=== PATIENT | female | born 1975 | race Caucasian/White ===

== ENCOUNTER 2022-07-14 13:33 | Outpatient (CLI) | payer BC, SELFPAY ==
--- NOTE | 2022-07-14 | DI.US_ITS ---
Exam(s) US LOWER EXTREMITY VENOUS RT EXAM: US LOWER EXTREMITY VENOUS RT CLINICAL HISTORY: RT CALF PAIN, M79.661, ? BLOT CLOT TECHNIQUE: Grayscale, color, and doppler imaging of the deep venous system of the right lower extrem ity was performed. COMPARISON: No exams were available for comparison FINDINGS: There is no evidence of intraluminal thrombus and there is normal compression and augmentation demons trated within the common femoral vein, femoral vein, and popliteal vein. In the ipsilateral calf the interrogated veins also exhibit normal compression/ augmentation properti es. The ipsilateral saphenofemoral junction is patent. IMPRESSION: 1. No evidence of DVT in the right lower extremity. DATA REPOSITORY:
--- NOTE | 2022-07-14 | DI.RAD_ITS ---
Exam(s) XR FOOT RT COMPLETE EXAM: XR FOOT RT COMPLETE CLINICAL HISTORY: RT CALF PAIN, RT HEEL PAIN, m79.661, M79.671. TECHNIQUE: 2D digital imaging was performed. COMPARISON: No exams were available for comparison FINDINGS: 3 views No evidence of acute fracture or diastasis of the Lisfranc joint. Bone density normal. No osseous l esions. No pes planus. Small inferior calcaneal spur noted. IMPRESSION: No significant acute osseous findings. DATA REPOSITORY: RADIATION DOSE DELIVERED:
== END 2022-07-14 13:53 ==
PROVIDERS: PCP Internal Medicine; Visit Provider Physician Assistant Medical
DX: M79.661 Pain in right lower leg (principal); M79.671 Pain in right foot
CPT/HCPCS: 73630; 93971

== ENCOUNTER 2022-07-26 09:58 | Outpatient (REF) | payer BC, SELFPAY | END 2022-07-26 09:59 | disposition home or self-care (01) | LOC: NCHCN 09:58 | PROVIDERS: PCP Internal Medicine; Visit Provider Nurse Practitioner Family | DX: R30.0 Dysuria (principal) | CPT/HCPCS: 87077; 87086; 87186 ==

== ENCOUNTER 2022-09-16 15:36 | Outpatient (REF) | payer BC, SELFPAY ==
--- NOTE | 2022-09-16 14:20 | PAPFT_PTH ---
PATIENT: Rachna Downing [facility] U#:[id number] AGE/SX: 47/F ROOM: RE09/16/[address]: Franca Vega : 1975 BED: DIS: 09/16/2022 SPEC #: [id number] RECD: 09/19/22 13:08 STATUS: CURLY AMAYA #: [id number] BETTYE: 09/16/22 14:[address]: Franca Vega DEPT: [facility] Cytology RECD BY: Fany Miller ENTERED: 09/19/22 13:08 SP TYPE: PAPFT OTHR DR: Muriel Ashton Tissues: 1 - CX/ENDOCX FOR PAP SMEARS Procedures: PAP THIN PREP/UVM Screening HPV DNA PROBE Comments: [id number]
[2022-09-16 21:00] LABS: HCT 39.2 % (36.0-46.0); MCH 27.8 pg (27.0-33.0); MCHC 33.2 % (32.0-36.0); MCV 84 fL (80-95); MPV 10.6 fL (8.0-11.0); Platelet Count 329 10^3/uL (130-400); RBC 4.67 10^6/uL (3.93-5.22); RDW 13.1 % (11.7-14.6); RDW-SD 39.9 fL; WBC 8.31 10^3/uL (4.4-10.8)
[2022-09-16 21:23] LABS: Hemoglobin A1C 5.9 % (<5.7)
[2022-09-16 21:24] LABS: ALT 23 U/L (14-59); AST 16 U/L (15-37); Alkaline Phosphatase 87 U/L (46-116); Anion Gap 10.6 mmol/L (3-11); BUN 11 mg/dL (7-18); Bilirubin, Total 0.3 mg/dL (0.2-1.0); C-Reactive Protein 0.68 mg/dL (0.0-0.3); CO2 26.4 mmol/L (21.0-32.0); CREATININE 0.6 mg/dL (0.55-1.02); Calcium 9.1 mg/dL (8.5-10.1); Chloride 103 mmol/L (98-107); Estimated GFR 110.65 (mL/min/1.73m2); Glucose 88 mg/dL (74-106); Potassium 4.1 mmol/L (3.5-5.1); Sodium 140 mmol/L (136-145); Total Protein 7.2 g/dL (6.4-8.2)
[2022-09-16 21:37] LABS: Vitamin D 25 Total 19.4 ng/mL (30-100)
[2022-09-16 21:38] LABS: Calculated LDL 126 mg/dL (<100); Cholesterol 208 mg/dL (<200); HDL Cholesterol 70 mg/dL (40-60); Triglyceride 64 mg/dL (<150)
[2022-09-17 22:10] LABS: Rheumatoid Factor <8.6 IU/mL (<12.0)
[2022-09-19 09:47] LABS: Cyclic Citrullinated Peptide <2.5 U/mL (<5.0)
== END 2022-09-16 15:37 | disposition home or self-care (01) ==
LOC: NCHCN 15:36
PROVIDERS: PCP Internal Medicine; Visit Provider Family Medicine
DX: Z00.00 Encounter for general adult medical examination without abnormal findings (principal); Z01.419 Encounter for gynecological examination (general) (routine) without abnormal findings; R19.00 Intra-abdominal and pelvic swelling, mass and lump, unspecified site; M79.10 Myalgia, unspecified site; Z68.30 Body mass index [BMI] 30.0-30.9, adult
CPT/HCPCS: 80053; 80061; 82306; 85027; 86200; 88142; 83036; 84443; 86140; 86431; 87624

== ENCOUNTER 2023-07-27 14:57 | Outpatient (REF) | payer BC, SELFPAY ==
--- NOTE | 2023-07-27 13:10 | ENDOMET_PTH ---
PATIENT: Rachna Downing LOC: [facility] U#:[id number] AGE/SX: 47/F ROOM: RE07/27/[address]: Ramya Almazan DO : 1975 BED: DIS: 07/27/2023 SPEC #: [id number] RECD: 07/27/23 15:53 STATUS: CURLY REQ #: [id number] BETTYE: 07/27/23 13:[address]: Ramya Almazan DEPT: Surgical Specimen RECD BY: Fany Miller ENTERED: 07/27/23 15:53 SP TYPE: Endomet OTHR DR: Muriel Ashton Tissues: 1 - ENDOMETRIUM BX/DAKOTA Procedures: GROSS AND MICRO LEVEL 4 Comments: [id number]
== END 2023-07-27 14:58 | disposition home or self-care (01) ==
LOC: LBN 14:57
PROVIDERS: PCP Internal Medicine; Visit Provider Obstetrics & Gynecology
DX: D25.9 Leiomyoma of uterus, unspecified (principal)
CPT/HCPCS: 88305

== ENCOUNTER 2023-08-29 05:15 | Outpatient (CLI) | payer BC, SELFPAY ==
[2023-08-29 11:44] LABS: Abs Immature Grans 0.02 10^3/uL (0.0-0.06); Absolute Basophil Count 0.06 10^3/uL (0.0-0.2); Absolute Eosinophil Count 0.16 10^3/uL (0.0-0.7); Absolute Lymphocyte Count 2.66 10^3/uL (1.2-3.4); Absolute Neutrophil Count 3.64 10^3/uL (1.2-6.7); Basophils % 0.9; Eosinophils % 2.3; HGB 12.5 g/dL (11.2-15.7); Immature Grans % 0.3; Lymphocytes % 37.8; MCH 27.5 pg (27.0-33.0); MCHC 32.9 % (32.0-36.0); MCV 84 fL (80-95); Monocytes % 7.1; Neutrophils % 51.6; Platelet Count 322 10^3/uL (130-400); RBC 4.54 10^6/uL (3.93-5.22); RDW 13.1 % (11.7-14.6); RDW-SD 40.2 fL; WBC 7.04 10^3/uL (4.4-10.8)
== END 2023-08-29 05:16 | disposition home or self-care (01) ==
LOC: LBO 05:16
PROVIDERS: PCP Internal Medicine; Visit Provider Obstetrics & Gynecology
DX: Z01.818 Encounter for other preprocedural examination (principal)
CPT/HCPCS: 36415; 86850; 86900; 86901; 85025

== ENCOUNTER 2023-08-31 11:25 | Day surgery (SDC) | payer BC, SELFPAY ==
[2023-08-31] VITALS (8 sets, daily range): BP systolic 71–115; BP diastolic 36–63; PULSE 61–90; RESP 16–20; TEMP 36.1–36.6; O2SAT 94–100; BMI 31.0
[2023-08-31] MEDS: Lactated Ringers 1,000 ML 125 ML IV (12:45)
--- NOTE | 2023-08-31 12:49 | W.ANESPRE ---
General Info Date of Service Date Performed: 08/31/23 Height: 5 ft Weight: 72.1 kg Body Mass Index (BMI): 31.0 Surgical Procedure: Operation Date: 08/31/23 13:10 Proposed Procedure Side Surgeon p Dilation & Curettage with Hysteroscopy Ramya Almazan DO Meds Allergies and Home Medications Allergies Allergy/AdvReac Type Severity Reaction Status Date / Time No Known Allergies Allergy Verified 08/31/23 12:25 Home Medication Medication Instructions Recorded Unknown [No Known Home Meds] 01/23/23 Current Visit Medications: Current Medications Generic Name Dose Route Start Last Admin Trade Name Freq PRN Reason Stop Dose Admin Ringer's Solution 1,000 mls @ 125 mls/hr 08/31/23 06:00 IV 08/31/23 23:59 INFUSION MINOO IV Miscellaneous Supplies 1 each 08/31/23 06:00 Iv Access IV 08/31/23 23:59 DIRECTED MINOO Sodium Chloride 0 ml 08/31/23 06:00 Normal Saline Flush 10 Ml Syr IV 08/31/23 23:59 PRN PRN Sodium Chloride 0 ml 08/31/23 06:00 Normal Saline 10 Ml Vial IJ 08/31/23 23:59 DIRECTED PRN Sterile Water 0 ml 08/31/23 06:00 Water,Injection,Sterile 10 Ml Vial IJ 08/31/23 23:59 DIRECTED PRN PFSH Active Problems Active Problems: Problem Status Onset Code Left ovarian cyst N83.202 Uterine fibroid D25.9 Surgical History Surgical History History of left oophorectomy Tobacco Smoking/Tobacco Use Status: Never Alcohol Alcohol Intake: never Substance Use Substance use: Never Substance use type: does not use Prental History History 1 Para 0 Hx # Term Pregnancies Multiple births Hx # Pregnancies Ectopic pregnancies 1 AB induced Hx Number of Living Children 0 AB spontaneous Vital Signs and Lab Results Vital Signs Most Recent Vital Signs in EMR: Most Recent Vital Signs Temp Pulse Resp BP Pulse Ox 36.5 C 63 16 100/63 99 08/31/23 12:29 08/31/23 12:29 08/31/23 12:29 08/31/23 12:29 08/31/23 12:29 Lab Results Blood Type / Crossmatch: Patient ABO/Rh O Positive 08/29/23 Antibody Screen NEGATIVE 08/29/23 Complete Blood Count: White Blood Count 7.04 10^3/uL (4.4-10.8) 08/29/23 11:34 Red Blood Count 4.54 10^6/uL (3.93-5.22) 08/29/23 11:34 Hemoglobin 12.5 g/dL (11.2-15.7) 08/29/23 11:34 Hematocrit 38.0 % (36.0-46.0) 08/29/23 11:34 Platelet Count 322 10^3/uL (130-400) 08/29/23 11:34 Complete Metabolic Panel: No Data to Display Liver Function Panel: No Data to Display Coagulation Panel: No Data to Display Cardiac Panel: No Data to Display Arterial Blood Gas: No Data to Display Venous Blood Gas: No Data to Display Pancreas Panel: No Data to Display Thyroid Panel: No Data to Display Infectious Disease: No Data to Display Blood Cultures: No Data to Display Toxicology Panel: No Data to Display Panel: No Data to Display Anesthesia Assessment and Plan Anesthesia History Personal History: No History of Anesthesia Complications Family History: No Family History of Anesthesia Complications Exercise Tolerance Exercise Tolerance: Metabolic Equivalents>4 Cardiac & Pulmonary Exam Cardiac Exam: Normal S1/S2 Heart Sounds Pulmonary Exam: Clear Bilateral Breath Sounds Implantable Cardiac Device Does patient have a Pacemaker or an ICD?: No Airway Exam Known Difficult Airway: No Mallampati Class: 3 Mouth Opening: Normal (> 3cm) Thyromental Distance: Greater than 3 cm Neck Range of Motion: Full ROM Neck Circumference: Normal Teeth Condition: Normal Dentition ASA Classification ASA Score: ASA 1 Emergency Case?: No NPO Status NPO Status: NPO Clears >2 hours, Solids >8 hours Status Status: Not Relevant due to Medical History Anesthesia Plan Resuscitation Status: Full Code Anesthesia Technique: General Anesthesia Airway Planned: LMA Monitors Used: Standard Monitors Preoperative Comments:: 48 yo female for D/C hysteroscopy. Sig PMHx: denies. no home meds.
--- NOTE | 2023-08-31 13:50 | ENDO_PTH ---
PATIENT: Rachna Downing LOC: [facility] U#:[id number] AGE/SX: 48/F ROOM: RE08/31/[address]: Ramya Almazan DO : 1975 BED: DIS: 08/31/2023 SPEC #: [id number] RECD: 08/31/23 17:31 STATUS: CURLY RE #: [id number] BETTYE: 08/31/23 13:[address]: Ramya Almazan DEPT: Surgical Specimen RECD BY: Fany Miller ENTERED: 08/31/23 17:32 SP TYPE: Endo OTHR DR: Muriel Ashton Tissues: 1 - ENDOCERVICAL BX/CURRETTE 2 - ENDOMETRIUM BX/CURRETTE Procedures: GROSS AND MICRO LEVEL 4 Comments: [id number]
--- NOTE | 2023-08-31 14:03 | ROE_ITS ---
Date of service: 08/31/23 Time of Service: 14:03 Operative Note Operative Note DATE OF PROCEDURE: 08/31/23 PRE-OP DIAGNOSIS: Uterine fibroids, thickened endometrium, failed endometrial biopsy POST-OP DIAGNOSIS: same PROCEDURE: Hysteroscopy with dilation and curettage SURGEON: Ramya Almazan ANESTHESIA TYPE: General LMA/ETT Refer to Anesthesia Record ESTIMATED BLOOD LOSS: 10 PATHOLOGY: other (1. Endocervical curettage 2. Endometrial curettage) COMPLICATIONS: None Patient was transported to: PACU Indications: Preoperative evaluation, thickened endometrium, uterine fibroids Findings: Bulky approximately 14 weeks size globular uterus with intramural fibroids appreciated. Otherwise smooth, regular endometrial lining. Procedure Description: After full informed consent was obtained, patient was taken the operating suite with an IV running where she is placed in the supine position. Anesthesia administered and the patient was placed in the modified dorsolithotomy position and prepped and draped in the usual sterile fashion. Timeout was held and bladder drained for approximately 50 cc of clear yellow urine. Exam under anesthesia reveals a markedly enlarged, bulky, globular fibroid uterus. At this point a speculum was inserted into the vaginal vault and a single-tooth tenaculum used to grasp the anterior lip of the cervix. Cervical os dilated to the point that a 3 mm hysteroscope could be passed without difficulty. With instillation of normal saline the entire endometrium was inspected and noted to be markedly irregular due to her intramural fibroids. Both tubal ostia were visualized. At this point hysteroscope portion was terminated with a total f luid deficit of 65 cc of normal saline. Fractional curettage was performed first of the endocervix, followed by the endometrium. Tenaculum was then removed. One of the tenaculum puncture sites was not hemostatic which was cauterized with silver nitrate. This was then noted to be hemostatic. Speculum was removed and the patient was returned to the dorsal supine position. She woke from anesthesia without difficulty. Complications: None apparent Fluids: crystalloid per anesthesia Pathology: 1. Endocervical curettage 2. Endometrial curettage EBL: 10 mL
[2023-08-31] MEDS: Silver Nitrate Stick 1 EACH (14:12)
--- NOTE | 2023-08-31 14:57 | W.ANESPOSTOP ---
Postoperative Evaluation Date, Time and Location Date Performed: 08/31/23 Time Performed: 14:57 Patient Location: Day Surgery Unit Vital Signs Most Recent Imported Vital Signs: Most Recent Vital Signs Temp Pulse Resp BP Pulse Ox 36.1 C L 84 16 105/55 L 100 08/31/23 14:45 08/31/23 14:45 08/31/23 14:45 08/31/23 14:45 08/31/23 14:45 Pain Score Most Recent Pain Score: Most Recent Pain Score Pain Level 0 08/31/23 14:45 Assessment Mental Status: Awake (Alert & Oriented to Patient Baseline) Airway and Respiratory Function: Patent airway with normal (patient baseline) respiratory exam Cardiovascular Function: Hemodynamically Stable Hydration Status: Adequately Hydrated Nausea & Vomiting: No Nausea or Vomiting Pain: Pain is tolerable per patient Peripheral Nerve Block: Patient did not receive a nerve block
== END 2023-08-31 15:26 | disposition home or self-care (01) ==
PROVIDERS: PCP Internal Medicine; Visit Provider Obstetrics & Gynecology
PROC: 0UDB8ZZ Extraction of Endometrium, Via Natural or Artificial Opening Endoscopic (ICD-10-PCS; CPT 58558; principal; 2023-08-31 13:00)
DX: D25.1 Intramural leiomyoma of uterus (principal); R93.89 Abnormal findings on diagnostic imaging of other specified body structures
CPT/HCPCS: 58558; 81025; 88305; J0131; J1100; J2250; J2371; J2405; J2704

== ENCOUNTER 2023-10-16 03:58 | Outpatient (CLI) | payer BC, SELFPAY ==
[2023-10-16 09:34] LABS: Abs Immature Grans 0.01 10^3/uL (0.0-0.06); Absolute Basophil Count 0.04 10^3/uL (0.0-0.2); Absolute Eosinophil Count 0.13 10^3/uL (0.0-0.7); Absolute Lymphocyte Count 2.24 10^3/uL (1.2-3.4); Absolute Monocyte Count 0.47 10^3/uL (0.1-0.8); Absolute Neutrophil Count 3.36 10^3/uL (1.2-6.7); Basophils % 0.6; Eosinophils % 2.1; HCT 38.4 % (36.0-46.0); HGB 12.9 g/dL (11.2-15.7); Immature Grans % 0.2; Lymphocytes % 35.8; MCH 28.2 pg (27.0-33.0); MCHC 33.6 % (32.0-36.0); MCV 84 fL (80-95); MPV 9.8 fL (8.0-11.0); Monocytes % 7.5; Neutrophils % 53.8; Platelet Count 341 10^3/uL (130-400); RBC 4.57 10^6/uL (3.93-5.22); RDW 13.1 % (11.7-14.6); RDW-SD 40.3 fL; WBC 6.25 10^3/uL (4.4-10.8)
== END 2023-10-16 03:59 | disposition home or self-care (01) ==
LOC: LBO 03:58
PROVIDERS: PCP Internal Medicine; Visit Provider Obstetrics & Gynecology
DX: Z01.818 Encounter for other preprocedural examination (principal)
CPT/HCPCS: 36415; 86850; 86900; 86901; 85025

== ENCOUNTER 2023-10-18 05:56 | Inpatient (IN) | payer BC, SELFPAY ==
[2023-10-18] VITALS (16 sets, daily range): BP systolic 82–119; BP diastolic 37–69; PULSE 63–100; RESP 16–28; TEMP 36.2–37.6; O2SAT 94–100; BMI 30.8
--- NOTE | 2023-10-18 06:35 | W.ANESPRE ---
General Info Date of Service Date Performed: 10/18/23 Height: 5 ft Weight: 71.668 kg Body Mass Index (BMI): 30.8 Surgical Procedure: Operation Date: 10/18/23 07:40 Proposed Procedure Side Surgeon p Total Hysterectomy Abdominal Ramya Almazan DO Meds Allergies and Home Medications Allergies Allergy/AdvReac Type Severity Reaction Status Date / Time No Known Allergies Allergy Verified 10/18/23 06:32 Home Medication Medication Instructions Recorded ibuprofen 800 mg tablet 800 mg PO Q8H #30 tabs 08/31/23 Current Visit Medications: Current Medications Generic Name Dose Route Start Last Admin Trade Name Freq PRN Reason Stop Dose Admin Ringer's Solution 1,000 mls @ 125 mls/hr 10/18/23 06:00 IV 11/16/23 23:59 INFUSION MINOO Cefazolin Sodium/Dextrose 2 gm in 50 mls @ 100 mls/hr 10/18/23 06:00 Ancef Duplex IVPB 11/16/23 23:59 PREOP MINOO IV Miscellaneous Supplies 1 each 10/18/23 06:00 Iv Access IV 11/16/23 23:59 DIRECTED MINOO Sodium Chloride 0 ml 10/18/23 06:00 Normal Saline Flush 10 Ml Syr IV 11/16/23 23:59 PRN PRN Sodium Chloride 0 ml 10/18/23 06:00 Normal Saline 10 Ml Vial IJ 11/16/23 23:59 DIRECTED PRN Sterile Water 0 ml 10/18/23 06:00 Water,Injection,Sterile 10 Ml Vial IJ 11/16/23 23:59 DIRECTED PRN PFSH Active Problems Active Problems: Problem Status Onset Code Status post dilation and curettage Z98.890 Left ovarian cyst N83.202 Uterine fibroid D25.9 Surgical History Surgical History History of left oophorectomy Tobacco Smoking/Tobacco Use Status: Never Alcohol Alcohol Intake: never Substance Use Substance use: Never Substance use type: does not use Prental History History 1 Para 0 Hx # Term Pregnancies Multiple births Hx # Pregnancies Ectopic pregnancies 1 AB induced Hx Number of Living Children 0 AB spontaneous Vital Signs and Lab Results Vital Signs Most Recent Vital Signs in EMR: Temp Pulse Resp BP Pulse Ox 36.6 C 63 16 119/59 L 100 10/18/23 06:25 10/18/23 06:25 10/18/23 06:25 10/18/23 06:25 10/18/23 06:25 Lab Results Blood Type / Crossmatch: Patient ABO/Rh O Positive 10/16/23 Antibody Screen NEGATIVE 10/16/23 Complete Blood Count: White Blood Count 6.25 10^3/uL (4.4-10.8) 10/16/23 09:26 Red Blood Count 4.57 10^6/uL (3.93-5.22) 10/16/23 09:26 Hemoglobin 12.9 g/dL (11.2-15.7) 10/16/23 09:26 Hematocrit 38.4 % (36.0-46.0) 10/16/23 09: Platelet Count 341 10^3/uL (130-400) 10/16/23 09:26 Complete Metabolic Panel: No Data to Display Liver Function Panel: No Data to Display Coagulation Panel: No Data to Display Cardiac Panel: No Data to Display Arterial Blood Gas: No Data to Display Venous Blood Gas: No Data to Display Pancreas Panel: No Data to Display Thyroid Panel: No Data to Display Infectious Disease: No Data to Display Blood Cultures: No Data to Display Toxicology Panel: No Data to Display Panel: No Data to Display Anesthesia Assessment and Plan Anesthesia History Personal History: No History of Anesthesia Complications Family History: No Family History of Anesthesia Complications Exercise Tolerance Exercise Tolerance: Metabolic Equivalents>4 Pertinent Negatives Pertinent Negatives: No Symptoms of GERD, No Major Cardiovascular Symptoms or Complaints, No Major Pulmonary Symptoms or Complaints and No History of CVA/TIA Cardiac & Pulmonary Exam Cardiac Exam: Normal S1/S2 Heart Sounds Pulmonary Exam: Clear Bilateral Breath Sounds Implantable Cardiac Device Does patient have a Pacemaker or an ICD?: No Airway Exam Known Difficult Airway: No Mallampati Class: 3 Mouth Opening: Normal (> 3cm) Thyromental Distance: Less than 3 cm Neck Range of Motion: Full ROM Neck Circumference: Normal Teeth Condition: Normal Dentition ASA Classification ASA Score: ASA 1 Emergency Case?: No NPO Status NPO Status: NPO Clears >2 hours, Solids >8 hours Status Status: Negative HCG Anesthesia Plan Resuscitation Status: Full Code Anesthesia Technique: General Anesthesia Airway Planned: Endotracheal Tube Pain Management: Surgeon and patient request nerve block Monitors Used: Standard Monitors
[2023-10-18] MEDS: Lactated Ringers 1,000 ML 125 ML IV ×2 (07:16→11:57)
[2023-10-18] MEDS: ceFAZolin 2 GM/50 ML BAG IVPB (07:55)
--- NOTE | 2023-10-18 08:51 | W.ANESNERVE ---
Nerve Block Single Injection Procedure Date and Time Date Performed: 10/18/23 Procedure Start: 08:15 Location Where Procedure Performed Procedure Location: Operating Room Procedure Stop: 08:25 Reason Performed: Postoperative Analgesia Requesting Provider: Ramya Almazan Timeout Performed Timeout Performed: Yes Monitoring Used ECG, Blood Pressure, SpO2, ETCO2 and See EMR for corresponding vital signs Sterility Sterility: Hand Hygiene, Surgical Cap, Surgical Mask, Sterile Gloves and Chlorhexidine Sedation Given During Procedure Sedation Given (Indicate Dose Given): No Sedation given Patient Mental Status Patient Mental Status: Sedated or Ventilated without meaningful communication Nerve Block 1st Nerve Block: Laterality: Left Block Type: TAP Unilateral Ultrasound Image Saved?: Yes Needle / Catheter Used: 100mm SonoPlex II Local Anesthetic Bolus (Indicate Dose Given): Injected in 3-5ml increments after negative blood aspiration, Bupivacaine 0.5% Dose:: 10mL and Exparel Dose:: 10mL Additives (Indicate Dose Given): Epinephrine to make 1:200,000 (5mcg/ml) Dose:: 100mcg Ultrasound: Sterile probe cover and gel used Nerve Stimulator: Not Used Paresthesia: None Procedure Tolerated: No Complications and Patient tolerated well Procedure Outcome: Successful Performed By: Bridget Pandya Supervised By: Brennan Arango 2nd Nerve Block: Laterality: Right Block Type: TAP Unilateral Ultrasound Image Saved?: Yes Needle / Catheter Used: 100mm SonoPlex II Local Anesthetic Bolus (Indicate Dose Given): Injected in 3-5ml increments after negative blood aspiration, Bupivacaine 0.5% Dose:: 10mL and Exparel Dose:: 10mL Additives (Indicate Dose Given): Epinephrine to make 1:200,000 (5mcg/ml) Dose:: 100mcg Ultrasound: Sterile probe cover and gel used Nerve Stimulator: Not Used Paresthesia: None Procedure Tolerated: No Complications and Patient tolerated well Procedure Outcome: Successful Performed By: Bridget Pandya Supervised By: Brennan Arango
[2023-10-18] MEDS: Bupivacaine 0.25% Pres-Free 30 ML VIAL (10:04)
--- NOTE | 2023-10-18 11:24 | UTER_PTH ---
PATIENT: Rachna Downing LOC: U#:[id number] AGE/SX: 48/F ROOM: 230 RE10/18/[address]: Ramya Almazan DO : 1975 BED: A DIS: 10/20/2023 SPEC #: [id number] RECD: 10/18/23 12:54 STATUS: SOUAlbert REQ #: [id number] BETTYE: 10/18/23 11:[address]: Ramya Almazan DEPT: Surgical Specimen RECD BY: Fany Miller ENTERED: 10/18/23 12:55 SP TYPE: UTER OTHR DR: Muriel Ashton Tissues: 1 - UTERUS W OR W/O OVARIES(NOT TUMOR/PROLAPSE) Procedures: GROSS AND MICRO LEVEL 5 Comments: [id number]
--- NOTE | 2023-10-18 12:13 | W.PM.OP ---
Date of service: 10/18/23 Time of Service: 12:13 Operative Note Operative Note DATE OF PROCEDURE: 10/18/23 PRE-OP DIAGNOSIS: Abnormal uterine bleeding, uterine fibroids POST-OP DIAGNOSIS: same Significant adhesions of the colon to the anterior abdominal wall, uterus, pelvic sidewalls bilaterally. PROCEDURE: Total abdominal hysterectomy with right salpingectomy. Extensive lysis of adhesions. Cystoscopy SURGEON: Ramya Almazan ASSISTING SURGEON: Nadia Ramírez DIGITAL CARTOGRAPHER: Luke Chen ANESTHESIA TYPE: Local By Surgeon and General LMA/ETT Refer to Anesthesia Record ESTIMATED BLOOD LOSS: 200 PATHOLOGY: other (Uterus, cervix, right fallopian tube) COMPLICATIONS: None Patient was transported to: PACU Patient's condition: stable Indications: Enlarged, symptomatic fibroid uterus. Abnormal uterine bleeding Findings: Adhesions of the colon to the anterior abdominal wall, uterus, posterior cul-de-sac, bilateral pelvic sidewalls. Bulky enlarged uterus approximately 16 weeks size with multiple uterine fibroids 1 being approximately 4 cm pedunculated to the right. Surgical absence of the left fallopian tube and left ovary. Clubbed right fallopian tube. Normal-appearing right ovary. Cystoscopy performed for confirmation of intact bladder, with no trauma, suture, and patent ureters bilaterally. Procedure Description: After full informed consent was obtained, patient was then taken the operating suite with an IV running. She was placed in the supine position and endotracheal intubation performed by for the administration of general anesthesia with ease. Tap blocks were then performed by anesthesia. At this point, she was placed in the lithotomy position and prepped and draped in the usual sterile fashion. Chisholm catheter was inserted for continuous bladder drainage and then the patient was returned to the supine position. Previous exam under anesthesia had revealed a significantly enlarged uterus approximately to the umbilicus which was globular in nature. Pneumatic compression stockings were placed for DVT prophylaxis. Patient had initial 2 g of Ancef for surgical site infection prophylaxis was then repeated at the 4-hour surgical aster for continued surgical site infection prophylaxis. A timeout was performed. At this point attention was turned to the abdomen where the previous Pfannenstiel skin incision was infiltrated with quarter percent Marcaine. Skin incision was made through the previous Pfannenstiel incision and carried down to the underlying fascia. The fascia was then nicked in the midline and the fascial incision extended laterally. The rectus muscles were identified in the midline and the rectus muscles were then in the midline. Peritoneum was identified tented up and entered sharply. There were noted to be dense adhesions of the colon to the anterior abdominal wall precluding entry into the abdomen and pelvis. In light of this, general surgery, Dr. Luke Chen, was called for assistance. His portion of the procedure was involved in entry into the abdomen and meticulous dissection of the colon away from the anterior abdominal wall. Please see his portion of the surgical procedure for description. Once the abdomen pelvis were entered, bowel was packed away with moist laparotomy sponges and O'Milan-O'Li self-retaining retractor was placed within. The uterus was able to be elevated through the incision and attention first turned to the left round ligament which was clamped transected and ligated. This allowed visualization into the left broad ligament. There were noted to be adhesions of the adnexa to the left pelvic sidewall which were meticulously dissected away. Careful attention was turned to the uterine vessels on the left which were systematically transected and ligated. The anterior leaf of the broad ligament was elevated allowing creation of the bladder flap by elevating the vesicouterine peritoneum. At this point, the anatomy on the right was inspected. The large pedunculated fibroid was used to achieve traction and visualization of theright adnexa. The right round ligament was elevated suture-ligated and transected. This allowed visualization into the right broad ligament. The right utero-ovarian ligaments were identified and ligated with the LigaSure in a systematic fashion. With the ovary and fallopian tube on the right-hand side identified the right fallopian tube was transected from its pedicle. At this point, with the uterus elevated, the right and left uterine artery and vein were clamped, transected, and suture-ligated. Attention was then turned again to adhesions of the bowel to the posterior lower uterine segment and cervix which were dissected away for better visualization by Dr. Chen. With both uterine pedicles clamped transected and ligated and the bladder pushed well below the cervical vaginal interface, right angled Zeppelin clamps were used to clamp across the cervical vaginal interface. The cervix and uterus were then transected away from the vagina with Tere scissors. The uterus and cervix were removed from the abdomen. The vaginal cuff was then closed with 0 Vicryl suture. The corner apices were incorporated into the vaginal vault closure. 0 Vicryl suture in a running locked fashion was used to close the vaginal vault. At this point, again all pedicles were inspected and noted to be hemostatic. Dr. Chen reinspected the abdomen, colon, and bowel to assure that there was no visualized damage. After copious amounts of irrigation was performed, sponges and retractors retaining retractor was removed from the abdomen. The fascial incision was closed using 0 Vicryl suture in a running fashion. Subcu tissue was irrigated with copious amounts of normal saline and reapproximated with 3-0 Vicryl suture in a simple interrupted fashion. The skin edge was then reapproximated with 4-0 undyed Monocryl and Steri-Strips and a sterile dressing were placed. Upon completion of the hysterectomy and extensive lysis of adhesions, cystoscopy was performed. Patient received indigocarmine intravascularly to assist in visualization of the ureteric jets bilaterally. The patient was then placed in a frog-leg position and prepped. 30 degree cystoscope was used to visualize both ureters jetting blue-tinged urine, and the remainder of the bladder was visualized and found to be atraumatic with no evidence of intra vesicle suture or trauma. Cystoscopy was then terminated and Chisholm catheter reinserted. The patient was returned to the dorsal supine position and awoke from anesthesia without difficulty. She was taken to the postanesthesia care unit in stable condition with a Chisholm catheter draining blue-tinged urine. EBL: 200 mL Fluids: Crystalloid per anesthesia Pathology: Uterus, cervix, right fallopian tube Complications: None apparent Findings: Extensive adhesions of the large bowel to the anterior abdominal wall, uterus, pelvic sidewalls, cul-de-sac. Extensive dissetion was warranted to allow visualization of the abdomen and pelvis. Bulky fibroid uterus approximately 14 weeks size with multiple uterine fibroids including 1 pedunculated 5 cm right fundal fibroid. Surgical absence of the left fallopian tube and ovary. Normal-appearing right ovary with clubbed right fallopian tube. Normal cystoscopy with no evidence of intravesicular trauma, or suture . Appropriately jetting ureteric orifice ease.
--- NOTE | 2023-10-18 12:53 | W.ANESPOSTOP ---
Postoperative Evaluation Date, Time and Location Date Performed: 10/18/23 Time Performed: 12:53 Patient Location: PACU Vital Signs Most Recent Imported Vital Signs: Most Recent Vital Signs Temp Pulse Resp BP Pulse Ox 36.5 C 85 25 H 90/48 L 100 10/18/23 12:40 10/18/23 12:40 10/18/23 12:40 10/18/23 12:40 10/18/23 12:40 Pain Score Most Recent Pain Score: Most Recent Pain Score Pain Level 0 10/18/23 12:40 Assessment Mental Status: Awake (Alert & Oriented to Patient Baseline) Airway and Respiratory Function: Patent airway with normal (patient baseline) respiratory exam Cardiovascular Function: Hemodynamically Stable Hydration Status: Adequately Hydrated Nausea & Vomiting: No Nausea or Vomiting Pain: Pt. Denies Any Pain Peripheral Nerve Block: Regional nerve block not resolved at time of post operative discharge
[2023-10-18] MEDS: oxyCODONE 5 mg/Acetaminophen 325 mg TAB PO (13:48)
[2023-10-18] MEDS: Ibuprofen 600 MG TAB PO (13:48)
--- NOTE | 2023-10-18 14:54 | NUR.NOTE ---
Pt refused to order anything for dinner, declined and PO offered except sips of water to take pain meds. Will continue to encourage. Nursing Note:
--- NOTE | 2023-10-18 16:12 | NUR.NOTE ---
Pt sipping water, warm mack musa, and eating saltine crackers. Nursing Note:
--- NOTE | 2023-10-18 16:27 | PGE_ITS ---
Date of Service Date of service: 10/18/23 Time of Service: 16:27 Assessment and Plan Assessment and plan (1) Status post total abdominal hysterectomy: Status: Acute Assessment and plan: Postop day 0 status post total abdominal hysterectomy with extensive lysis of adhesions. Pain control. Incentive spirometer. Pneumatic compression stockings. Slowly advance diet as tolerated. Hopefully up in the chair this evening if possible. All questions answered. Subjective Subjective Interval history since last seen: Patient seen and examined postoperative day 0, approximately 4 hours status post total abdominal hysterectomy with extensive lysis of adhesions. Overall she is doing reasonably well. Vital signs are stable. Urine output is appropriate. Pain control is a bit of an issue. Her anterior abdominal wall feels comfortable, however she has internal abdominal cramping. She denies nausea or vomiting. She does have IV fluids at 125 and is taking sips of liquid. Will add IV Dilaudid every 2 hours as needed along with her other medications. CBC in the morning. I would anticipate up in a chair this evening. Incentive spirometry encouraged. Pneumatic compression stockings are in place for DVT prophylaxis. Objective Last Vital Signs Temp 97.7 F 10/18/23 14:43 Pulse 95 H 10/18/23 14:43 Resp 16 10/18/23 14:43 BP 114/65 10/18/23 14:43 Pulse Ox 100 10/18/23 14:43 Time Spent with Patient Time Spent with Patient: 25-34 minutes Time was spent: preparing to see the patient(eg.review tests), obtaining and/or reviewing separately otained hiistory, ordering medications,tests, procedures, referring, communicating with other health foster care therapist, indepentently i nterpreting results and counseling the patient
[2023-10-18] MEDS: Normal Saline Flush 10 ML SYR IV ×3 (16:44→18:09)
[2023-10-18] MEDS: HYDROmorphone 2 MG/ML SYR 1 MG IVP (16:45)
[2023-10-18] MEDS: Ondansetron 4 MG/2 ML VIAL IVP (17:35)
[2023-10-18] MEDS: Simethicone 80 MG CHEW CH (17:43)
[2023-10-18] MEDS: Ketorolac 30 MG/ML VIAL 15 MG IVP (18:08)
--- NOTE | 2023-10-18 18:25 | NUR.NOTE ---
PRN Simethicone given had good effect for pt's nausea/GERD. Will monitor. Nursing Note:
[2023-10-18] MEDS: Docusate Sodium 100 MG CAP PO (20:57)
[2023-10-19] MEDS: Ketorolac 30 MG/ML VIAL 15 MG IVP ×2 (00:18→06:12)
[2023-10-19] MEDS: Lactated Ringers 1,000 ML 125 ML IV (02:05)
[2023-10-19 03:35] VITALS: BP 93/49; PULSE 92; RESP 17; TEMP 37.6; O2SAT 95
[2023-10-19 07:01] LABS: HCT 30.9 % (36.0-46.0); HGB 10.4 g/dL (11.2-15.7); MCH 28.1 pg (27.0-33.0); MCHC 33.7 % (32.0-36.0); MCV 84 fL (80-95); MPV 10.3 fL (8.0-11.0); Platelet Count 277 10^3/uL (130-400); RDW 13.3 % (11.7-14.6); RDW-SD 41.3 fL; WBC 11.73 10^3/uL (4.4-10.8)
[2023-10-19] MEDS: Normal Saline Flush 10 ML SYR IV ×3 (07:21→20:52)
[2023-10-19] MEDS: HYDROmorphone 2 MG/ML SYR 1 MG IVP ×2 (07:22→15:24)
[2023-10-19] MEDS: Ondansetron 4 MG/2 ML VIAL IVP ×2 (07:23→20:51)
[2023-10-19] MEDS: Docusate Sodium 100 MG CAP PO ×2 (07:24→20:34)
--- NOTE | 2023-10-19 07:25 | W.PM.PROGNOT ---
Date of Service Date of service: 10/19/23 Time of Service: 07:25 Assessment and Plan Assessment and plan (1) Status post total abdominal hysterectomy: Status: Acute Assessment and plan: POD #1. Doing well. Increase activity today. Pain control. D/C erazo. Diet as tolerated. Await return of bowel function Subjective Subjective Interval history since last seen: Patien seen and examined, labs and vitals reviewed. Hgb stable. Low grade temp this AM and last PM. Suspect atelectasis. Slow to move this AM. No nausea, no flatus as of yet, though active bowel sounds. Exam Const General: cooperative, healthy appearing and no acute distress Orientation: oriented x3 HENMT Head: normal to inspection Eyes General: appearance normal, both eyes and all related structures Resp Effort & Inspection: normal respiratory effort, no audible wheezes and no cough Cardio Rate: regular rate Rhythm: regular rhythm GI Inspection: normal to inspection, non-distended and incision (dressed) Palpation: soft and tender Skin General skin exam: no rashes or lesions noted Extrem General: normal to inspection, no clubbing, cyanosis or edema and no calf tenderness Objective Last Vital Signs Temp 99.7 F H 10/19/23 03:35 Pulse 92 H 10/19/23 03:35 Resp 17 10/19/23 03:35 BP 93/49 L 10/19/23 03:35 Pulse Ox 95 10/19/23 03:35 Laboratory Results - last 24 hr 10/19/23 06:36 WBC 11.73 H RBC 3.70 L Hgb 10.4 L D Hct 30.9 L MCV 84 MCH 28.1 MCHC 33.7 RDW 13.3 Plt Count 277 MPV 10.3 Time Spent with Patient Time Spent with Patient: 25-34 minutes Time was spent: preparing to see the patient(eg.review tests), obtaining and/or reviewing separately otained hiistory, ordering medications,tests, procedures, referring, communicating with other health childbirth and infant care teacher, indepentently interpreting results and counseling the patient
[2023-10-19 09:41] VITALS: BP 102/57; PULSE 68; RESP 17; TEMP 36.7; O2SAT 96
[2023-10-19] MEDS: Ibuprofen 600 MG TAB PO (13:20)
[2023-10-19] MEDS: Simethicone 80 MG CHEW CH (13:20)
--- NOTE | 2023-10-19 13:45 | INITIAL_ITS ---
Date of service: 10/19/23 Time of Service: 13:45 Care Management Initial Assmt Initial Assessment REASON FOR HOSPITALIZATION:: PADMINI PREVIOUS FUNCTIONAL STATUS/SOCIAL/FAMILY SUPPORTS:: Rachna lives in [place] with her Zeeshan and their 2 dogs. Pt does not have children. 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 She drives an hour to work each day. Rachna is independent with her ADLs/IADLs at baseline. She enjoys playing Bingo with her . CURRENT FUNCTIONAL STATUS:: Rachna was sitting up in a chair when CM met with her. She is pleasant and easy to engage in conversations. Rachna is concerned about not being able to return to work until the end of November. She has completed FMLA paperwork with her that has already been faxed to her employer. CM discussed FLMA and gave her a brochure for [employer]. ADVANCE DIRECTIVES:: None on file at [facility]. Has patient been provided with info about the portal/API?: Yes Did the patient sign up for the portal?: Yes (Prior to admission) CODE STATUS:: Full Code INSURANCE COVERAGE / FINANCIAL ISSUES:: [facility] CURRENT HOME/COMMUNITY SERVICES/EQUIPMENT:: None PRIMARY CARE PHYSICIAN:: Muriel Ashton POTENTIAL DISCHARGE NEEDS:: Discharge plan of care, follow up appointments PATIENT/FAMILY EDUCATION NEEDS:: Review discharge instructions, limitations and plan to follow up with community providers. Discuss ask me three. ANTICIPATED BARRIERS TO DISCHARGE:: No identified TRANSPORTATION:: private vehicle with PLAN:: Rachna is S/P PADMINI. Pt will discharge home when medically ready per Surgical provider. Pt will follow up with community providers and her discharge plan of care as instructed. will transport home. PFSH All Active Problems (Updated 10/19/23 @ 07:30 by Ramya Almazan DO) Status post total abdominal hysterectomy (Acute) Total abdominal hysterectomy, right salpingectomy, extensive lysis of adhesions due to scar tissue from previous ruptured ectopic. 10/17/ Surgical History (Updated 10/19/23 @ 07:30 by Ramya Almazan DO) Status post dilation and curettage 08/31/2023 History of left oophorectomy Social History Smoking/Tobacco Use Status: Never Smoking risk assessment performed?: Yes Alcohol Intake: never Drug use: Never Substance use type: does not use Housing: house Do you feel safe at home: Yes Do you feel safe in your relationship?: Yes History History 1 Para 0 Hx # Term Pregnancies Multiple births Hx # Pregnancies Ectopic pregnancies 1 AB induced Hx Number of Living Children 0 AB spontaneous SDOH(Care Management) Screening Will the Patient Participate in the Screening?: Declined to provide
--- NOTE | 2023-10-19 14:24 | NUR.NOTE ---
Pt is feeling uch better today, pain controlled with PO meds, erazo removed and urinating on her own. Nursing Note:
--- NOTE | 2023-10-19 15:21 | W.PM.OP ---
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 Almazan to join her in the operating room to assist with exposure within the pelvis because of complicated adhesions encountered during Pfannenstiel approach for total abdominal hysterectomy. I joined Dr. Almazan and Dr. Ramírez in the operating room, and they provided me with relevant medical and surgical history for the patient. They intended to perform a total abdominal hysterectomy for uterine fibroids. The approach was by way of a Pfannenstiel incision. The skin and subcutaneous tissues had already been opened and dissected. The midline fascia was also opened, and there were obvious adhesions of omentum and colon immediately under the incision. The upper edge of the fascia was grasped with Luis E clamps, and I began by dissecting the left rectus muscle. Great care was taken to find an appropriate and clear space, and I lysed adhesions of the greater omentum off of the left rectus muscle using combination of sharp dissection with Metzenbaum scissors, as well as some blunt dissection. As I continued this dissection cephalad there appeared to be a portion of colon adherent to the anterior abdominal wall as well. I carefully dissected the serosa away from the abdominal wall. Most of this was done in sharp fashion with Metzenbaum scissors in order to minimize likelihood of serosal injury. As I continued this dissection cephalad, I was able to come down onto the right rectus muscle. Similarly, there was a significant amount of adhesions mostly involving the greater omentum along the right rectus extending slightly cephalad. With tedious dissection, all of these adhesions were taken down. Next, I turned my attention to the inferior margin. As previously mentioned, the fascia already been opened. There was a small cuff of fascia just above the pubic symphysis. The inferior margin of the rectus muscle was dissected inferiorly, and the bladder flap was slowly matured and retracted towards the pelvic floor. This allowed me to carry out dissection toward the left and right sides for better visualization. With this complete, a self-retaining retractor was placed to help with visualization. In addition to the previous mentioned adhesions to the anterior abdominal wall, there was also a fair amount of adhesive disease up onto the dome of the uterus. Again, with careful dissection, all of this was mobilized free. The right side was mostly open, and with dissection towards the left, we were able to fully mobilize the fundus of the uterus down onto the lateral support structures. At this point, I assisted Dr. Almazan with control of the uterine vessels. Details of that dissection and division can be found in her separate operative report. Once this was complete, I turned the conduct of the operation back over to Dr. Almazan and Dr. Ramírez who completed the abdominal hysterectomy. Once the uterus and cervix were delivered up out of the pelvis as a specimen, I did examine the pelvic floor once again to ensure that there was no evidence of any injury. All of the dissection appeared well away from all of the critical structures. I did not see any evidence of any type of hollow visceral injury or deserosalization. Aside from the previously mentioned adhesions, majority of the peritoneal contents appeared fairly mobile, especially as a pertains to the small intestine. I did assist with irrigation of the pelvic floor. Again, and all appeared normal and hemostatic. At that point, I exited the operating room remaining available by telephone for any other assistance if needed.
[2023-10-19 15:39] VITALS: BP 98/47; PULSE 86; RESP 18; TEMP 37; O2SAT 92
--- NOTE | 2023-10-19 16:38 | CHAPLAIN ---
Kayla was sitting up in a chair when I visited and her was with her. She said she is doing well and her said he is very happy to see Rachna doing so well. 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
[2023-10-19] MEDS: oxyCODONE 5 mg/Acetaminophen 325 mg TAB PO ×2 (17:37→22:29)
[2023-10-19 19:50] VITALS: BP 101/58; PULSE 71; RESP 18; TEMP 36.7; O2SAT 95
[2023-10-20 00:18] VITALS: BP 99/56; PULSE 74; RESP 18; TEMP 36.7; O2SAT 94
[2023-10-20] MEDS: oxyCODONE 5 mg/Acetaminophen 325 mg TAB PO (03:44)
[2023-10-20 03:46] VITALS: BP 108/51; PULSE 80; RESP 18; TEMP 37.2; O2SAT 95
[2023-10-20] MEDS: Docusate Sodium 100 MG CAP PO (08:03)
[2023-10-20] MEDS: Acetaminophen 500 MG TAB PO (08:03)
[2023-10-20] MEDS: Normal Saline Flush 10 ML SYR IV (08:04)
[2023-10-20 08:09] VITALS: BP 101/48; PULSE 77; RESP 16; TEMP 37.1; O2SAT 97
--- NOTE | 2023-10-20 08:34 | W.PM.PROGNOT ---
Date of Service Date of service: 10/20/23 Time of Service: 08:34 Assessment and Plan Assessment and plan (1) Status post total abdominal hysterectomy: Status: Acute Assessment and plan: Postoperative day #2 status post total abdominal hysterectomy with extensive lysis of adhesions. Overall she is doing well. Pain is reasonably well-controlled. Had some nausea with vomiting related to IV pain medication. Encouraged ambulation, oral pain medication, diet, increase in activity. If tolerating regular diet and oral pain medication would anticipate discharge home later today if stable. All questions were answered. All follow-up reviewed. Subjective Subjective Interval history since last seen: Patient seen and examined this morning. Overall doing well. She did states she had 2 episodes of nausea with vomiting which she reports is related to her IV pain medication. She has been passing flatus. Appetite is appropriate. She has been ambulatory, and voiding without difficulty. Her vital signs are stable. She is using her incentive spirometer appropriately. She is desirous of discharge home. The plan will be due to see how she tolerates her morning and noon time meals. If she is having no nausea or vomiting, discharge home would be appropriate. All of her questions were answered. Instructions given. Exam Const General: cooperative, healthy appearing, comfortable, no acute distress, well developed and well groomed HENMT Head: normal to inspection Resp Effort & Inspection: normal respiratory effort, no audible wheezes and no cough Cardio Rate: regular rate Rhythm: regular rhythm GI Inspection: normal to inspection, incision (Dressed) and obesity Palpation: soft, not firm and no guarding Percussion: normal to percussion Auscultation: normal bowel sounds Skin General skin exam: no rashes or lesions noted Neuro General: patient alert and patient oriented x3 Extrem General: normal to inspection, no clubbing, cyanosis or edema and no calf tenderness Psych Appearance: grossly normal Mental Status: mental status grossly normal Affect: normal affect Attitude: cooperative Thought Process: normal Objective Last Vital Signs Temp 98.8 F 10/20/23 08:09 Pulse 77 10/20/23 08:09 Resp 16 10/20/23 08:09 BP 101/48 L 10/20/23 08:09 Pulse Ox 97 10/20/23 08:09 Time Spent with Patient Time Spent with Patient: 25-34 minutes Time was spent: preparing to see the patient(eg.review tests), obtaining and/or reviewing separately otained hiistory, ordering medications,tests, procedures, referring, communicating with other health healthcare administrative assistant, indepentently interpreting results and counseling the patient
--- NOTE | 2023-10-20 08:42 | DSE_ITS ---
Date of service: 10/20/23 Time of Service: 08:42 DS: Diagnosis Discharge Diagnosis (1) Status post total abdominal hysterectomy: Status: Acute Asessment and Plan: Postop day 2 status post total abdominal hysterectomy with extensive lysis of adhesions. Doing well. Anticipate discharge home today. Follow-up in the office in 1 and 2 weeks. Prescriptions to the pharmacy. Discharge Plan Disposition Patient Disposition: Home Condition: Improving Discharge Details Reason For Visit: PADMINI Admit Date/Time: 10/18/23 05:56 Admit Provider: Ramya Almazan Attending Provider: Ramya Almazan Primary Care Provider: Muriel Ashton [facility] Hospital Course: Patient underwent total abdominal hysterectomy right salpingectomy and extensive lysis of adhesions per Dr. Luke Chen. She has had an uncomplicated postoperative course and was transitioned from IV to parenteral pain medication, diet advanced, Chisholm catheter discontinued, and patient ambulatory. She is discharged home post operative day #2 in stable condition with close follow-up and precautions given. Home Meds and New Rx's Prescriptions: New ibuprofen 800 mg tablet 800 mg PO Q8H PRNQty: 60 1RF docusate sodium [Colace] 100 mg capsule 100 mg PO BID Qty: 30 1RF oxycodone-acetaminophen [Percocet] 5-325 mg tablet 1 tab PO Q8H PRNQty: 14 0RF Discontinued ibuprofen 800 mg tablet 800 mg PO Q8H Qty: 30 1RF Discharge Instructions Stand Alone Forms: DSU Post Pocketed Spring Machine Operator SurgeryW/Incision, Nursing Discharge Form Referrals: Ramya Almazan DO [OSTEOPATHIC DOCTOR] - 11/03/23 9:00 am Activity:: Pelvic rest, no heavy lif Equipment/Supplies:: No Equipment Needed Diet:: As Tolerated Discharge Orders Discharge Orders: Discharge Order (Routine); Ordered 10/20/23 Ordered By: Ramya Almazan Discharge Data Discharge Date/Time-TO BE ENTERED AT DEPARTURE: 10/20/23 09:33 DS: Summary Time Spent with Patient providing and/or coordinating discharge services: Greater than 30 minutes Status at Discharge Functional status at discharge: independent ambulation Overall status at discharge: patient is progressing back to baseline Mental Status: mental status grossly normal Speech and Movement: speech and movement normal Mood: congruent mood Affect: normal affect Quality:SDOH Health Related Social Needs: No Data to Display Exam Narrative Exam Narrative: See physical exam from progress note dated 10/20/2023. Psych Mental Status: mental status grossly normal Speech and Movement: speech and movement normal Mood: congruent mood Affect: normal affect DS: Data Vitals/I&O Vitals and I&O: Vital Signs Temperature 98.8 F 10/20/23 08:09 Temperature Source Tympanic 10/20/23 08:09 Pulse 77 10/20/23 08:09 Pulse Rhythm Regular 10/19/23 16:42 Respiratory Rate 16 10/20/23 08:09 Respiratory Effort Normal, Non-Labored 10/19/23 16:42 Respiratory Depth Normal 10/19/23 16:42 Respiratory Pattern Normal 10/19/23 16:42 Blood Pressure 101/48 L 10/20/23 08:09 Pulse Oximetry 97 10/20/23 08:09 Respiratory End-tidal CO2 33 10/18/23 13:10 Oxygen Delivery Method Room Air 10/20/23 08:09 Oxygen Flow Rate 0 10/20/23 08:09 Pain Level 3 10/20/23 08:09 Comment RN Notified 10/20/23 03:46 Intake & Output 10/19/23 10/19/23 10/20/23 11:59 23:59 11:59 Intake Total 1000 / 1000 Output Total 2600 / 4100 1500 / 4100 150 / 150 Balance -1600 / -3100 -1500 / -3100 -150 / -150 Intake: IV 1000 / 1000 Output: Urine 2600 / 4100 1500 / 4100 150 / 150 Other: Urine Color Pale Yellow Light Ritu Yellow Urine Appearance Clear Clear Clear Urine Odor None Normal Voiding Methods Toilet Toilet PFSH All Active Problems (Updated 10/19/23 @ 07:30 by Ramya Almazan DO) Status post total abdominal hysterectomy (Acute) Total abdominal hysterectomy, right salpingectomy, extensive lysis of adhesions due to scar tissue from previous ruptured ectopic. 10/17/ Surgical History (Updated 10/19/23 @ 07:30 by Ramya Almazan DO) Status post dilation and curettage 08/31/2023 History of left oophorectomy Social History Smoking/Tobacco Use Status: Never Smoking risk assessment performed?: Yes Alcohol Intake: never Drug use: Never Substance use type: does not use Housing: house Do you feel safe at home: Yes Do you feel safe in your relationship?: Yes History History 1 Para 0 Hx # Term Pregnancies Multiple births Hx # Pregnancies Ectopic pregnancies 1 AB induced Hx Number of Living Children 0 AB spontaneous Time Spent with Patient Time Spent with Patient: <45 minutes Time was spent: preparing to see the patient(eg.review tests), obtaining and/or reviewing separately otained hiistory, ordering medications,tests, procedures, referring, communicating with other health ocular care technician and indepentently interpreting results
--- NOTE | 2023-10-20 09:07 | PDOC.CMDIS ---
LACE Index Scoring Tool Questions: Length of Stay (in days): 2 Was the patient admitted via the E.D.?: Yes E.D. Visits: 0 Answers: Total Score: 5 Risk of Readmission: Low Risk Care Management Discharge Plan Reason for Hospitalization: PADMINI Discharge Plan: Rachna is S/P PADMINI. Pt discharged home today as she was when medically ready by the Surgical provider. Pt will follow up with community providers and her discharge plan of care as instructed. will transport home. Patient/Family Education Needs: Review discharge instructions and plan of care as prescribed. Discussion of Ask Me Three self care needs upon discharge. SDOH Health Related Social Needs: No Data to Display [facility]position [facility]
== END 2023-10-20 09:33 | disposition home or self-care (01) | DRG 742 ==
LOC: PDS 05:57 → MS 13:27
PROVIDERS: Admitting Provider Obstetrics & Gynecology; PCP Internal Medicine; Visit Provider Obstetrics & Gynecology
PROC: 0UT90ZZ Resection of Uterus, Open Approach (ICD-10-PCS; CPT 58150; principal; 2023-10-18 07:30)
DX: D25.1 Intramural leiomyoma of uterus (principal); J98.11 Atelectasis; N93.8 Other specified abnormal uterine and vaginal bleeding; K66.0 Peritoneal adhesions (postprocedural) (postinfection); R11.2 Nausea with vomiting, unspecified; R50.82 Postprocedural fever
CPT/HCPCS: 58150; 44005; 36415; 76942; 81025; 85027; 88307; C9290; J0131; J0171; J0665; J0690; J1100; J1170; J1885; J2001; J2250; J2274; J2371; J2405; J2704; J3010; J3475

== ENCOUNTER 2023-11-03 14:32 | Outpatient (REF) | payer BC, SELFPAY | END 2023-11-03 14:33 | disposition home or self-care (01) | LOC: LBN 14:32 | PROVIDERS: PCP Internal Medicine; Visit Provider Obstetrics & Gynecology | DX: R30.0 Dysuria (principal); Z98.890 Other specified postprocedural states; Z90.710 Acquired absence of both cervix and uterus | CPT/HCPCS: 87086 ==

== ENCOUNTER 2024-07-31 10:22 | Outpatient (CLI) | payer BC, SELFPAY ==
--- NOTE | 2024-07-31 12:27 | DI.RAD_ITS ---
Exam(s) XR SACROILIAC JOINTS XR HIP PELVIS ADULT BL EXAM: XR HIP PELVIS ADULT BL CLINICAL HISTORY: PAIN RT HIP, M25.551. TECHNIQUE: 2D digital imaging was performed. Five views. COMPARISON: CR XR SACROILIAC JOINTS from 07/31/2024 FINDINGS: BONES: No acute fracture is present. No bony destructive lesion is seen. JOINTS: No dislocation present. The hip joint spaces are maintained. Mild spurring at the superior acetabula bilaterally. The SI joints show mild spurring inferiorly. The pubic symphysis appears nor mal. SOFT TISSUE: Normal. IMPRESSION: Mild degenerative changes of the AC joints. Minimal degenerative changes of the hips. DATA REPOSITORY: RADIATION DOSE DELIVERED:
--- NOTE | 2024-07-31 12:27 | DI.RAD_ITS ---
Exam(s) XR KNEE RT 3V AP,LAT,ANA EXAM: XR KNEE RT 3V AP,LAT,NAA CLINICAL HISTORY: PAIN IN RT KNEE, M25.561. TECHNIQUE: 2D digital imaging was performed. Three views. COMPARISON: No exams were available for comparison FINDINGS: BONES: No acute fracture is present. No bony destructive lesion is seen. JOINTS: The knee is normally aligned. No joint effusion is seen. The joint spaces are maintained. SOFT TISSUE: Normal. IMPRESSION: Unremarkable radiographs of the right knee. DATA REPOSITORY: RADIATION DOSE DELIVERED:
== END 2024-07-31 10:42 ==
PROVIDERS: PCP Internal Medicine; Visit Provider Family Medicine
DX: M16.0 Bilateral primary osteoarthritis of hip (principal); M25.561 Pain in right knee
CPT/HCPCS: 73521; 73562; 72202

== ENCOUNTER 2024-09-26 15:43 | Outpatient (CLI) | payer BC, SELFPAY ==
--- NOTE | 2024-09-26 | DI.RAD_ITS ---
Exam(s) XR CHEST 2V PA LATERAL EXAM: XR CHEST 2V PA LATERAL CLINICAL HISTORY: Cough, R05.9 TECHNIQUE: 2D digital imaging was performed. Two views. COMPARISON: No exams were available for comparison FINDINGS: HEART: Normal size. Aorta: Not dilated. PULMONARY VASCULATURE: Normal. MEDIASTINUM: Unremarkable. LUNGS: Clear. PLEURAL SPACE: No pleural effusion or pneumothorax. BONE:Unremarkable for age. SOFT TISSUES: Unremarkable. IMPRESSION: No acute abnormality. DATA REPOSITORY: RADIATION DOSE DELIVERED:
== END 2024-09-26 16:03 ==
LOC: DI 15:43
PROVIDERS: PCP Family Medicine; Visit Provider Family Medicine
DX: R05.9 Cough, unspecified (principal)
CPT/HCPCS: 71046

== ENCOUNTER 2024-12-11 01:09 | Outpatient (CLI) | payer BC, SELFPAY ==
--- NOTE | 2024-12-11 06:30 | DI.MRI_ITS ---
Exam(s) MR LOWER JOINT RT WO EXAM: MR LOWER JOINT RT WO CLINICAL HISTORY: PAIN,trochanteric bursitis rt hip,N70.61 TECHNIQUE: Multiplanar multisequence MRI of right hip was performed COMPARISON: CR XR HIP PELVIS ADULT BL from 07/31/2024 FINDINGS: Bones: There is no evidence of a fracture or avascular necrosis. No significant joint effusion or l abral injury is present. No bone marrow edema is seen. The SI joints and symphysis pubis are well arielle ntained. Musculotendinous structures: There is hyperintense signal seen at the insertion site of the right gl uteus medius tendon suspicious for partial tear. There is edema seen in the right gluteus medius and minimus muscle. The uterus is absent. IMPRESSION: Findings consistent with right trochanteric bursitis with findings suspicious for a partial tear of t he right gluteus medius tendon. DATA REPOSITORY:
== END 2024-12-11 01:29 ==
LOC: DI 01:09
PROVIDERS: PCP Family Medicine; Visit Provider Student in an Organized Health Care Education/Training Program
DX: M70.61 Trochanteric bursitis, right hip (principal)
CPT/HCPCS: 73721

== ENCOUNTER 2025-02-25 16:44 | Outpatient (REF) | payer BC, SELFPAY ==
[2025-02-25 15:31] LABS: ALT 30 U/L (14-59); AST 14 U/L (15-37); Albumin 3.7 g/dL (3.4-5.0); Alkaline Phosphatase 90 U/L (46-116); Anion Gap 8.3 mmol/L (3-11); BUN 10 mg/dL (7-18); Bilirubin, Total 0.3 mg/dL (0.2-1.0); CO2 27.7 mmol/L (21.0-32.0); Calcium 8.6 mg/dL (8.5-10.1); Calculated LDL 118 mg/dL (<100); Chloride 104 mmol/L (98-107); Cholesterol 189 mg/dL (<200); Estimated GFR 120.50 (mL/min/1.73m2); Glucose 91 mg/dL (74-106); HDL Cholesterol 59 mg/dL (>or=50); Potassium 3.9 mmol/L (3.5-5.1); Sodium 140 mmol/L (136-145); Total Protein 6.8 g/dL (6.4-8.2); Triglyceride 62 mg/dL (<150)
[2025-02-25 15:39] LABS: Hemoglobin A1C 5.8 % (<5.7)
== END 2025-02-25 16:45 | disposition home or self-care (01) ==
LOC: NCHCN 16:44
PROVIDERS: PCP Family Medicine; Visit Provider Family Medicine
DX: R73.03 Prediabetes (principal); Z13.220 Encounter for screening for lipoid disorders; Z68.34 Body mass index [BMI] 34.0-34.9, adult
CPT/HCPCS: 80053; 80061; 83036

== ENCOUNTER 2025-05-23 05:56 | Day surgery (SDC) | payer BC, SELFPAY ==
[2025-05-23] VITALS (33 sets, daily range): BP systolic 98–132; BP diastolic 48–68; PULSE 70–86; RESP 11–19; TEMP 36.2–36.6; O2SAT 92–100; BMI 31.7
[2025-05-23] MEDS: Lactated Ringers 1,000 ML 30 ML IV (06:50)
--- NOTE | 2025-05-23 07:08 | W.PM.DSUDISC ---
Date of service: 05/23/25 Discharge Plan Disposition Patient Disposition: Home Condition: Stable Discharge Details Attending Provider: Mingo Hicks Primary Care Provider: Franca Vega Home Meds and New Rx's Prescriptions: New aspirin 81 mg capsule 81 mg PO DAILY 14 Days Qty: 14 0RF naproxen 250 mg tablet 250 - 500 mg PO BID PRN (Reason: moderate pain and swelling) Qty: 40 0RF oxycodone 5 mg tablet 5 - 10 mg PO .q4-6h MDD 30 mg PRN (Reason: severe pain) Qty: 18 0RF Continued docusate sodium [Colace] 100 mg capsule 100 mg PO BID PRN Discontinued ibuprofen 800 mg tablet 800 mg PO Q8H PRNQty: 60 1RF Discharge Instructions Additional Instructions: Surgery: Right hip endoscopy with iliotibial band release and trochanteric bursectomy 05/23/25 Activity: Weightbearing as tolerated. May use crutches or walker as needed for a few days. Gradually advance to full range of motion and activity over the next few weeks. Physical therapy prescription will be sent to start in a few weeks. Prescriptions: Aspirin 81 mg take 1 daily to prevent a blood clot for 2 weeks, starting tomorrow Naproxen 250 mg take 1-2 every 12 hours with a meal as needed for moderate pain Oxycodone 5 mg take 1-2 every 4-6 hours as needed for severe pain You may use [id number] Tylenol (acetaminophen) as needed for mild pain. These pain medications may be taken all at once or in different combinations as needed. Also, recommend Colace (docusate) as a stool softener as surgery and pain medicine cause constipation. You may try [id number] diphenhydramine (Benadryl) 25-50 mg nightly as a sleep aid Dressings: Leave dressing in place for 3 days. It is common for the incision to fill with the arthroscopy fluid, which may make it wet and/or pink with drainage. As long as it is not saturated, leave it in place. If it becomes saturated, remove it sooner and replace gauze and secure with tape if needed for another 1-2 days. May then remove and leave open to air or cover incisions with Band-Aids. Leave the sticky Steri-Strips in place until they fall off or remove them after you shower. May shower after 5 days. Follow-up: 10-[address] Hicks You may take off the leg compression stockings this evening at home. You may also leave them on a few days longer if you have a history of leg swelling or edema. Let us know right away if you develop any redness, drainage, fevers, chest pain, or trouble breathing. Do not drink alcohol or drive for at least 24 hours after anesthesia. Please call the office during business hours with any questions or concerns. Stand Alone Forms: Anesthesia Discharge Inst., Crutch Training Instructions, Brian Ca (DSU), Portal Information Referrals: Mingo Hicks MD [ [facility] STAFF PHYSICIAN, Orthopaedic Surgical] - 06/03/25 1:00 pm Discharge Orders Discharge Orders: Discharge Order (Routine); Ordered 05/23/25 Ordered By: Juanita Post DS: Diagnosis Discharge Diagnosis (1) Iliotibial band syndrome of right side: Status: Acute (2) Trochanteric bursitis, right hip: Status: Acute (3) Tendinopathy of right gluteal region: Status: Acute
--- NOTE | 2025-05-23 07:12 | W.ANESPRE ---
General Info Date of Service Date Performed: 05/23/25 Height: 5 ft Weight: 73.7 kg Body Mass Index (BMI): 31.7 Surgical Procedure: Operation Date: 05/23/25 07:50 Proposed Procedure Side Surgeon p Endoscopic Iliotibial Band Release w/Trochanteric Bursectomy and Possible Gluteal Tendon Release Right Mingo Hicks MD Actual Procedure Side Surgeon p Endoscopic Iliotibial Band Release w/Trochanteric Bursectomy and Possible Gluteal Tendon Release Right Mingo Hicks MD Pre-Op Diagnosis Post-Op Diagnosis (1) Trochanteric bursitis, right hip: (2) Tendinopathy of right gluteal region: (3) Iliotibial band syndrome of right side: Meds Allergies and Home Medications Allergies Allergy/AdvReac Type Severity Reaction Status Date / Time No Known Allergies Allergy Verified 05/23/25 06:29 Home Medication Medication Instructions Recorded docusate sodium 100 mg capsule 100 mg PO BID PRN 05/21/25 (Colace) aspirin 81 mg capsule 81 mg PO DAILY prevent blood clot 05/23/25 14 days #14 caps naproxen 250 mg tablet 250 - 500 mg (1 - 2 x 250 mg) PO 05/23/25 BID PRN moderate pain and swelling #40 tabs oxycodone 5 mg tablet 5 - 10 mg (1 - 2 x 5 mg) PO .q4-6h 05/23/25 PRN severe pain #18 tabs Current Visit Medications: Current Medications Generic Name Dose Route Start Last Admin Trade Name Freq PRN Reason Stop Dose Admin Ringer's Solution 1,000 mls @ 30 mls/hr 05/23/25 06:00 05/23/25 06:50 IV 05/23/25 23:59 30 mls/hr INFUSION MINOO Administration Cefazolin Sodium/Dextrose 2 gm in 50 mls @ 100 mls/hr 05/23/25 06:00 Ancef Duplex IVPB 05/23/25 23:59 PREOP MINOO Tranexamic Acid/Sodium Chloride 1,000 mg in 100 mls @ 600 mls/hr 05/23/25 06:00 IVPB 05/23/25 23:59 PREOP MINOO IV Miscellaneous Supplies 1 each 05/23/25 06:00 Iv Access IV 05/23/25 23:59 DIRECTED MINOO Oxycodone HCl 0 mg 05/23/25 07:07 Oxycodone 5 Mg Tab PO 06/22/25 07:06 Q3H PRN PRN Pain Sodium Chloride 0 ml 05/23/25 06:00 Normal Saline Flush 10 Ml Syr IV 05/23/25 23:59 PRN PRN Sodium Chloride 0 ml 05/23/25 06:00 Normal Saline 10 Ml Vial IJ 05/23/25 23:59 DIRECTED PRN Sterile Water 0 ml 05/23/25 06:00 Water,Injection,Sterile 10 Ml Vial IJ 05/23/25 23:59 DIRECTED PRN PFSH Active Problems Active Problems: Problem Status Onset Code Iliotibial band syndrome of right side Acute M76.31 Tendinopathy of right gluteal region Acute M67.951 Plantar fascial fibromatosis Acute M72.2 Diffuse endemic goiter Acute E01.0 Vitamin D deficiency Acute E55.9 Pain, joint, knee, right Acute M25.561 Sacroiliac joint pain Acute M53.3 Carpal tunnel syndrome, bilateral Acute G56.03 Trochanteric bursitis, right hip Acute M70.61 Surgical History Surgical History Status post total abdominal hysterectomy Total abdominal hysterectomy, right salpingectomy, extensive lysis of adhesions due to scar tissue from previous ruptured ectopic. 10/17/ Status post dilation and curettage 08/31/2023 History of left oophorectomy Tobacco Smoking/Tobacco Use Status: Never Passive smoking exposure: No Alcohol Alcohol Intake: never Substance Use Substance use: Never Substance use type: does not use Prental History History 1 Para 0 Hx # Term Pregnancies Multiple births Hx # Pregnancies Ectopic pregnancies 1 AB induced Hx Number of Living Children 0 AB spontaneous Vital Signs and Lab Results Vital Signs Most Recent Vital Signs in EMR: Most Recent Vital Signs Temp Pulse Resp BP Pulse Ox 36.5 C 72 16 115/63 98 05/23/25 06:35 05/23/25 06:35 05/23/25 06:35 05/23/25 06:35 05/23/25 06:35 Anesthesia Assessment and Plan Anesthesia History Personal History: No History of Anesthesia Complications Family History: No Family History of Anesthesia Complications Exercise Tolerance Exercise Tolerance: Metabolic Equivalents>4 Pertinent Negatives Pertinent Negatives: No Symptoms of GERD Cardiac & Pulmonary Exam Cardiac Exam: Normal S1/S2 Heart Sounds Pulmonary Exam: Clear Bilateral Breath Sounds Implantable Cardiac Device Does patient have a Pacemaker or an ICD?: No Airway Exam Known Difficult Airway: No Mallampati Class: 3 Mouth Opening: Normal (> 3cm) Thyromental Distance: Less than 3 cm Neck Range of Motion: Full ROM Neck Circumference: Normal Teeth Condition: Normal Dentition ASA Classification ASA Score: ASA 2 Emergency Case?: No NPO Status NPO Status: NPO Clears >2 hours, Solids >8 hours Status Status: History of Hysterectomy Anesthesia Plan Resuscitation Status: Full Code Anesthesia Technique: General Anesthesia Airway Planned: LMA Monitors Used: Standard Monitors
--- NOTE | 2025-05-23 07:27 | ROE_ITS ---
Operative Note Operative Note PRE-OP DIAGNOSIS: Right hip 1. Iliotibial band syndrome 2. Trochanteric bursitis 3. Gluteal tendon tear POST-OP DIAGNOSIS: same PROCEDURE: Right hip endoscopic 1. Iiliotibial band release, CPT# 52876 2. Trochanteric bursectomy, CPT# 61261 SURGEON: Mingo Hicks TOP BOTTOM ATTACHING MACHINE OPERATOR: Juanita Post ANESTHESIA TYPE: Local By Surgeon and General LMA/ETT Refer to Anesthesia Record ESTIMATED BLOOD LOSS: 10 COMPLICATIONS: None Patient was transported to: PACU Patient's condition: stable Indications: Please see complete medical record for details. Findings: Somewhat taut iliotibial band. Abundant inflamed trochanteric bursitis. Moderate gluteal medius and minimus tendinopathy without tendon structural tearing. Inflammatory hemorrhagic injection throughout the peritrochanteric space, which made debridement and release more challenging. Procedure Description: In the operating room, general anesthesia was induced. The patient was positioned supine on the [facility] operating room table. All bony prominences were well-padded. Preoperative antibiotics were administered. The hip was prepped and draped in the usual sterile fashion. The correct patient, procedure, and side of the procedure were all verified prior to incision. 30 cc of 0.25% bupivacaine containing epinephrine was infiltrated about the subcutaneous tissues for the planned anterior lateral and distal anterolateral portals as well as deeply over the greater trochanter. A knife was used to incise the skin for the anterior lateral and distal anterolateral portals followed by blunt dissection subcutaneously. Under fluoroscopic guidance, a switching stick and arthroscope were inserted localizing the iliotibial band ove r the greater trochanter. Blunt dissection and the mechanical shaver were used to resect fat and overlying tissue about the center of the iliotibial band and carefully expose the anterior and posterior margins. Once there was adequate exposure of the IT band, the greater trochanter was again localized under fluoroscopic guidance with a spinal needle inserted through the skin down to bone. This central area was marked using the radiofrequency ablator. A [place] blade was brought in and used to create a 2 cm longitudinal incision in line with the IT band fibers as well as extending it in a cruciate fashion with 2 cm incisions anteriorly and posteriorly. The radiofrequency ablator was used to achieve hemostasis. The mechanical shaver was then used to debride the IT band released edges exposing the trochanteric bursa. The mechanical shaver was then used to excise the trochanteric bursa taking care to protect musculature about the margins of the greater trochanter as well as neurovascular structures especially posteriorly. There was excellent visualization of the vastus lateralis as well as gluteus medius confirming appropriate bursa excision. The hip was brought through range of motion including internal and external rotation and there was no impinging iliotibial band tissue or remaining pathologic bursa. The viewing and working portals were switched and appropriate IT band release, trochanteric bursa excision, and hemostasis confirmed. Suction was used to remove fluid from the endoscopic space. The portals were closed using 3-0 Monocryl in a buried fashion. Steri-Strips were applied over the incisions followed by Xeroform, 4 x 4 gauze, an ABD pad, and secured with tape. The patient awoke from anesthesia without complication and was transferred to the recovery room in a stable condition. Date of Procedure: 05/23/25
[2025-05-23] MEDS: ceFAZolin 2 GM/50 ML BAG IVPB (07:37)
[2025-05-23] MEDS: TRANEXAMIC ACID/SOD. CHL. 1,000 MG/100 ML BAG 600 MG IVPB (07:46)
[2025-05-23] MEDS: Bupivacaine 0.25% Pres-Free W/EPI 30 ML VIAL (08:16)
[2025-05-23] MEDS: EPINEPHrine 10 MG/10 ML ML (08:17)
--- NOTE | 2025-05-23 08:46 | DI.RAD_ITS ---
Exam(s) XR HIP RT IN OR EXAM: XR HIP RT IN OR CLINICAL HISTORY: Iliotibial band syndrome of right side. TECHNIQUE: 2D digital imaging was performed. COMPARISON: No exams were available for comparison FINDINGS: Proximally provided intraoperatively for orthopedic procedure right lower extremity See procedure report for details IMPRESSION: Radiation exposure index/cumulative dose:Malir=1.2234 DATA REPOSITORY: RADIATION DOSE DELIVERED:
[2025-05-23] MEDS: HYDROmorphone 2 MG/ML SYR IVP (09:25)
--- NOTE | 2025-05-23 11:01 | W.ANESPOSTOP ---
Postoperative Evaluation Date, Time and Location Date Performed: 05/23/25 Time Performed: 11:01 Patient Location: Day Surgery Unit Vital Signs Most Recent Imported Vital Signs: Most Recent Vital Signs Temp Pulse Resp BP Pulse Ox 36.3 C L 81 16 115/60 100 05/23/25 10:02 05/23/25 10:02 05/23/25 10:02 05/23/25 10:02 05/23/25 10:02 Pain Score Most Recent Pain Score: Most Recent Pain Score Pain Level 4 05/23/25 10:02 Assessment Mental Status: Awake (Alert & Oriented to Patient Baseline) Airway and Respiratory Function: Patent airway with normal (patient baseline) respiratory exam Cardiovascular Function: Hemodynamically Stable Hydration Status: Adequately Hydrated Nausea & Vomiting: No Nausea or Vomiting Pain: Pain is tolerable per patient Peripheral Nerve Block: Patient did not receive a nerve block
== END 2025-05-23 11:05 | disposition home or self-care (01) ==
LOC: SUR 05:56
PROVIDERS: PCP Family Medicine; Visit Provider Student in an Organized Health Care Education/Training Program
PROC: (CPT 29863; principal; 2025-05-23 07:30)
DX: M76.31 Iliotibial band syndrome, right leg (principal); M70.61 Trochanteric bursitis, right hip; M67.951 Unspecified disorder of synovium and tendon, right thigh
CPT/HCPCS: 27062; 27305; 73501; J0690; J1100; J1171; J1885; J2250; J2405; J2704